=== PATIENT | female | born 1970 | race Caucasian/White ===

== ENCOUNTER 2019-03-06 17:58 | Emergency (ER) | payer MEDICAID, OTHER ==
[2019-03-06] MEDS ORDERED: Lidocaine 1% with EPINEPHrine 1:100,000 50 ML MDV INFILT ONE (18:44)
--- NOTE | 2019-03-06 18:45 | EDM.PDOC ---
ED HPI GENERAL MEDICAL PROBLEM - General Chief Complaint: Lower Extremity Injury/Pain Stated Complaint: POLE WENT THRU LEG Time Seen by Provider: 03/06/19 18:44 Source of Information: Reports: Patient, Family History Limitations: Reports: No Limitations - History of Present Illness INITIAL COMMENTS - FREE TEXT/NARRATIVE: 48-year-old female with an injury to the back of her right thigh. She stumbled on a dock, impaling her thigh with a pole. She has an irregular laceration/ avulsion of the right posterior thigh. No difficulties with ambulation. Onset: Sudden Duration: Hour(s): (Within the last hour) Location: Reports: Lower Extremity, Right Associated Symptoms: Reports: No Other Symptoms Right Leg Pain Score (Numeric/FACES): 6 - Related Data Allergies Allergy/AdvReac Type Severity Reaction Status Date / Time adhesive tape Allergy Itching Verified 03/06/19 18:41 environmental Allergy Itching Uncoded 03/06/19 18:41 Home Meds: Home Meds Albuterol Sulfate [Proair Hfa] 1 puff IH Q4H PRN 03/06/19 [History] Cetirizine [ZyrTEC] 10 mg PO DAILY 03/06/19 [History] Cholecalciferol (Vitamin D3) [Vitamin D3] 1,000 unit PO DAILY 03/06/19 [History] Cyclobenzaprine [Flexeril] 10 mg PO TID PRN 03/06/19 [History] EPINEPHrine [Auvi-Q] 0.3 mg IJ ASDIRECTED PRN 03/06/19 [History] Fluticasone Propionate [Flonase] 1 spray NS DAILY 03/06/19 [History] Gabapentin [Neurontin] 700 mg PO BID 03/06/19 [History] Levonorgestrel [Kyleena] 1 each .XX ASDIRECTED 03/06/19 [History] Metoprolol Succinate [Toprol XL 50mg] 50 mg PO DAILY 03/06/19 [History] Montelukast [Singulair] 10 mg PO DAILY 03/06/19 [History] Oxybutynin [Oxybutynin ER] 5 mg PO DAILY 03/06/19 [History] Tamoxifen [Nolvadex] 20 mg PO DAILY 03/06/19 [History] Venlafaxine [Effexor XR] 150 mg PO DAILY 03/06/19 [History] diphenhydrAMINE [Benadryl] 25 mg PO Q4H PRN 03/06/19 [History] Social & Family History - Tobacco Use Smoking Status *Q: Current Every Day Smoker Years of Tobacco use: 30 Packs/Tins Daily: 1 - Caffeine Use Caffeine Use: Reports: Coffee, Soda - Recreational Drug Use Recreational Drug Use: No Review of Systems - Review of Systems Review Of Systems: See Below Constitutional: Denies: Fever Respiratory: Denies: Shortness of Breath Cardiovascular: Denies: Chest Pain GI/Abdominal: Denies: Abdominal Pain Neurological: Denies: Paresthesia ED EXAM, GENERAL - Physical Exam Exam: See Below Exam Limited By: No Limitations General Appearance: Alert, No Apparent Distress Respiratory/Chest: No Respiratory Distress Extremities: Other (Exam is otherwise limited to the right leg. The patient has an irregular, macerated laceration/a bulge in with a total length of 5-1/2 cm to the posterior thigh. Subcutaneous tissue and fat is exposed and the skin is retracted. There is no dirt or foreign body seen.) Course - Vital Signs Last Recorded V/S: Last Vital Signs Temp 97.6 F 03/06/19 18:46 Pulse 74 03/06/19 18:46 Resp 20 03/06/19 18:46 BP 148/85 H 03/06/19 18:46 Pulse Ox 95 03/06/19 18:46 - Orders/Labs/Meds Meds: Medications Discontinued Medications Generic Name Dose Route Start Last Admin Trade Name Freq PRN Reason Stop Dose Admin Bacitracin 1 dose 03/06/19 18:47 03/06/19 18:52 Bacitracin Oint 1 Gm TOP 03/06/19 18:48 1 dose ONETIME ONE Administration Ibuprofen 600 mg 03/06/19 19:24 03/06/19 19:35 Motrin PO 03/06/19 19:25 600 mg ONETIME ONE Administration Lidocaine/Epinephrine 30 ml 03/06/19 18:44 03/06/19 18:51 Xylocaine 1% With Epinephrine 1:100,000 INFILT 03/06/19 18:45 30 ml ONETIME ONE Administration - Re-Assessments/Exams Free Text/Narrative Re-Assessment/Exam: 03/06/19 19:20 The wound was anesthetized with 1% lidocaine with epinephrine. After anesthesia , the wound was explored and washed thoroughly with saline. Again I found no dirt or foreign body, there were no significant deep structures involved. The wound was then undermined, there was some debridement to even the edges and 2 5- 0 Vicryl sutures were used to close the subcutaneous tissue. 8 5-0 Ethilon sutures were used to drink close the external aspect of the wound. Topical bacitracin and a dressing was applied, she is to keep the wound clean and covered while healing and the sutures can be removed in 9 days. Recheck sooner if concerns of infection or not healing satisfactorily. Departure - Departure Time of Disposition: 19:38 Disposition: Home, Self-Care 01 Clinical Impression: Laceration of right thigh Qualifiers: Encounter type: initial encounter Qualified Code(s): S71.111A - Laceration without foreign body, right thigh, initial encounter - Discharge Information Instructions: Wound Care, Adult Referrals: PCP,None [Primary Care Provider] - Forms: ED Department Discharge Care Plan Goals: Keep wound covered and clean while healing. Recheck in 9 days, Friday the for suture removal. Return sooner if concerns of infection or not healing satisfactorily.
[2019-03-06] MEDS ORDERED: Bacitracin Oint 1 GM U/D Packet TOP ONE (18:47)
[2019-03-06] MEDS ORDERED: Ibuprofen 600 MG Tab PO ONE (19:24)
== END 2019-03-06 19:39 | disposition home or self-care (01) ==
LOC: JP.ED 17:58
DX: S71.111A Laceration without foreign body, right thigh, initial encounter (principal); F17.210 Nicotine dependence, cigarettes, uncomplicated; Z79.899 Other long term (current) drug therapy; Z91.09 Other allergy status, other than to drugs and biological substances; W22.8XXA Striking against or struck by other objects, initial encounter
CPT/HCPCS: 12032; 99282; A9270